=== PATIENT | female | born 1995 | race Caucasian/White ===

== ENCOUNTER 2016-06-07 19:09 | Inpatient (IN) | payer MEDICAID ==
[2016-04-04 17:09] VITALS: BMI 16.0
[2016-06-07] MEDS ORDERED: Aluminum;Magnesium;Simethicone 30 ML UDC PO PRN (19:55)
[2016-06-07 20:23] LABS: AUTOMATED EOSINOPHIL 0.6 % (0-5)
[2016-06-07 20:27] LABS: BLOOD UREA NITROGEN 10 MG/DL (7-17); CALC CORRECTED 9.7 MG/DL (8.4-10.2); CALCIUM 8.5 MG/DL (8.4-10.2); CALCULATED OSMOLALITY 261 MOs/Kg (270-290); CHLORIDE 107 mEq/L (98-107); GLUCOSE 91 MG/DL (70-99); SODIUM LEVEL 136 mEq/L (137-146); URIC ACID 4.4 MG/DL (2.5-6.2)
[2016-06-07 20:39] LABS: ALL NEG? NO
[2016-06-07 20:41] LABS: AUTOMATED BASOPHIL 0.6 % (0-2); AUTOMATED LYMPH 15.5 % (17-44); AUTOMATED MONOCYTE 6.6 % (3-10); AUTOMATED NEUTROPHIL 76.7 % (45-76); MPV 9.9 fL (7.4-10.4)
[2016-06-07 20:48] LABS: MDMA* NEG (NEGATIVE); METHAMPHETAMINES *POSITIVE* (NEGATIVE); OXYCODONE NEG (NEGATIVE)
[2016-06-07 20:51] LABS: LEUKOCYTES/URINE TRACE (NEGATIVE); NITRITE/URINE NEG (NEGATIVE); RBC/URINE TNTC (0-5); URINE OCCULT BLOOD 3+ (NEG/TRACE)
--- NOTE | 2016-06-07 21:30 | HISTPHYS ---
- HISTORY OF PRESENT ILLNESS Age: 20 Estimated Due Date: 08/10/16 Gestational Age: 28 : 1 Para: 0 Patient Presents to:: Labor & Delivery Presents for:: Vaginal Bleeding Details: Pt states she had light vaginal bleeding starting around 630 pm. Pt denies any recent intercourse Current : Other Complications (pt had pyelonephritis earlier in the ) - REVIEW OF SYSTEMS Reports/Denies: Reports: Vaginal Bleeding (but none since arrival to triage), Movement, Headache. Denies: Contractions, Leaking Fluid Pain: Reports: None - ALLERGIES Allergies Allergy/AdvReac Type Severity Reaction Status Date / Time Fish Containing Products Allergy Anaphylaxis Verified 06/07/16 19:26 * latex Allergy Rash-Locali Verified 06/07/16 19:26 zed milk Allergy Diarrhea Verified 06/07/16 19:26 nut - unspecified Allergy Anaphylaxis Verified 06/07/16 19:26 * - PAST SURGICAL HISTORY Reports: None - SOCIAL HISTORY Smoking Status: Former smoker - GENITOURINARY HISTORY Gynecologic History: Denies: Sexually Transmitted Infections HX : 1 Para: 0 Live Deliveries (# of pregnancies resulting in a live ): 0 - PHYSICAL EXAM Vital Signs:: Temperature: 98.3 F (06/07/16 19:27) HR: 74 (06/07/16 19:27) RR: 20 (06/07/16 19:27) BP: 163/115 (06/07/16 19:27) Pulse Ox: () Laboratory Results - last 24 hr 06/07/16 06/07/16 06/07/16 20:05 20:05 20:25 WBC 15.1 H RBC 3.64 L Hgb 10.8 L Hct 32.1 L MCV 88 MCH 29.7 MCHC 33.7 RDW 13.1 Plt Count 241 MPV 9.9 Neut % (Auto) 76.7 H Lymph % (Auto) 15.5 L [place] % (Auto) 6.6 Eos % (Auto) 0.6 Baso % (Auto) 0.6 Absolute Neuts (auto) 11.48 H Absolute Lymphs (auto) 2.27 Sodium 136 L Potassium 3.2 L Chloride 107 Carbon Dioxide 20 L Anion Gap 12 BUN 10 Creatinine 0.60 Estimated GFR (MDRD) > 60 Glucose 91 Calculated Osmolality 261 L Uric Acid 4.4 Calcium 8.5 Corrected Calcium 9.7 Total Bilirubin 0.3 AST 18 ALT 28 Alkaline Phosphatase 111 Total Protein 6.0 L Albumin 2.8 L Urine Color Yellow Urine Clarity Sl cldy Urine pH 6.0 Ur Specific [place] 1.005 Urine Protein 3+ H Urine Glucose (UA) Trace Urine Ketones Neg Urine Occult Blood 3+ H Urine Nitrite Neg Urine Bilirubin Neg Urine Urobilinogen <2.0 Ur Leukocyte Esterase Trace H Urine RBC Tntc H Ur Epithelial Cells 2+ Urine Bacteria Few Urine Mucus Mod H Urine Opiates Screen Ur Oxycodone Screen Urine Methadone Screen Ur Barbiturates Screen Ur Tricyclics Screen Ur Phencyclidine Scrn Ur Amphetamines Screen U Methamphetamines Scrn Urine MDMA Screen U Benzodiazepines Scrn Urine Cocaine Screen Ur THC Screen 06/07/16 20:25 WBC RBC Hgb Hct MCV MCH MCHC RDW Plt Count MPV Neut % (Auto) Lymph % (Auto) [place] % (Auto) Eos % (Auto) Baso % (Auto) Absolute Neuts (auto) Absolute Lymphs (auto) Sodium Potassium Chloride Carbon Dioxide Anion Gap BUN Creatinine Estimated GFR (MDRD) Glucose Calculated Osmolality Uric Acid Calcium Corrected Calcium Total Bilirubin AST ALT Alkaline Phosphatase Total Protein Albumin Urine Color Urine Clarity Urine pH Ur Specific [place] Urine Protein Urine Glucose (UA) Urine Ketones Urine Occult Blood Urine Nitrite Urine Bilirubin Urine Urobilinogen Ur Leukocyte Esterase Urine RBC Ur Epithelial Cells Urine Bacteria Urine Mucus Urine Opiates Screen *positive* H Ur Oxycodone Screen Neg Urine Methadone Screen Neg Ur Barbiturates Screen Neg Ur Tricyclics Screen *positive* H Ur Phencyclidine Scrn Neg Ur Amphetamines Screen Neg U Methamphetamines Scrn *positive* H Urine MDMA Screen Neg U Benzodiazepines Scrn Neg Urine Cocaine Screen Neg Ur THC Screen Neg GENERAL: Alert, Oriented, Anxious HEENT: Normal CARDOVASCULAR/CHEST: Normal RESPIRATORY: Normal - CTA ABDOMEN: Gravid, Non-Distended, Non-Tender, Soft (verified by MD) MUSCULOSKELETAL: Normal EXTERMITIES: Moves All Extremeties [place]S SIGN: negative: Bilateral Heart Rate: 140's Marked Variability Contractions: Absent Membranes: Intact - ASSESSMENT (ACTIVE PROBLEMS) (1) 30 weeks gestation of Acute Z3A.30 - 30 WEEKS GESTATION OF (2) Vaginal bleeding in Acute O46.90 - ANTEPARTUM HEMORRHAGE, UNSPECIFIED, UNSPECIFIED TRIMESTER (3) Drug abuse, opioid type Acute F11.10 - OPIOID ABUSE, UNCOMPLICATED (4) Drug abuse, amphetamine type Acute F15.10 - OTHER STIMULANT ABUSE, UNCOMPLICATED (5) Hypertension affecting , antepartum, third trimester Acute O16.3 - UNSPECIFIED MATERNAL HYPERTENSION, THIRD TRIMESTER - PLAN Admit (observation) Other Plan: pt kept for observation primarily due to persistent elevated BP. 3+ protein noted but urine sample did have blood noted as well as significant mucus. MD not sure of clinical relevance of the protein. If BP still elevated in the morning could start 24 hour urine , possibly as outpatient. [facility] labs were within normal limits, in light of positive drug screen, this may be the cause even though pt is adamant she has not used anything. However, the sample was run again by the lab and was still positive. Pt will receive IV hydralazine for BP control with probable D/C in AM when the effects of possible drugs have hopefully worn off.
[2016-06-07] MEDS ORDERED: Vaccine Screening Complete SCH (22:00)
[2016-06-07] MEDS: LR 1,000 ML IV SCH (22:07)
[2016-06-07] MEDS: ACETAMINOPHEN 325 MG/TAB TABLET PO PRN (22:07)
[2016-06-07] MEDS: hydrALAZINE 20 MG/ML VIAL IV PRN (22:07)
[2016-06-08] MEDS: LR 1,000 ML IV SCH (05:47)
[2016-06-08] MEDS: hydrALAZINE 20 MG/ML VIAL IV PRN ×2 (07:29→18:14)
[2016-06-08] MEDS: ACETAMINOPHEN 325 MG/TAB TABLET PO PRN (07:31)
[2016-06-08 08:37] LABS: LEUKOCYTES/URINE NEG (NEGATIVE); NITRITE/URINE NEG (NEGATIVE); URINE OCCULT BLOOD 1+ (NEG/TRACE)
[2016-06-08 08:49] LABS: BLOOD UREA NITROGEN 8 MG/DL (7-17); CALC CORRECTED 9.5 MG/DL (8.4-10.2); CALCIUM 8.3 MG/DL (8.4-10.2); CALCULATED OSMOLALITY 259 MOs/Kg (270-290); CHLORIDE 108 mEq/L (98-107); GLUCOSE 81 MG/DL (70-99); SODIUM LEVEL 136 mEq/L (137-146); TOTAL PROTEIN 6.3 G/DL (6.3-8.2); URIC ACID 4.4 MG/DL (2.5-6.2)
[2016-06-08 09:14] LABS: SEG NEUTROPHIL 80 % (45-76)
--- NOTE | 2016-06-08 10:39 | OBGYNPROG ---
- Subjective Hospital Day #: 2 Reports: Movement. Denies: Complaints, Vaginal Bleeding, Contractions, Heartburn/Indigestion, RUQ Pain, HEENT Complaints Pain: Reports: None - Objective Vital Signs: Temperature: 98.1 F (06/08/16 06:20) HR: 67 (06/08/16 06:20) RR: 18 (06/08/16 06:20) BP: 176/96 (06/08/16 06:20) Pulse Ox: () Laboratory Results - last 24 hr 06/07/16 06/07/16 06/07/16 20:05 20:05 20:25 WBC 15.1 H RBC 3.64 L Hgb 10.8 L Hct 32.1 L MCV 88 MCH 29.7 MCHC 33.7 RDW 13.1 Plt Count 241 MPV 9.9 Neut % (Auto) 76.7 H Lymph % (Auto) 15.5 L [place] % (Auto) 6.6 Eos % (Auto) 0.6 Baso % (Auto) 0.6 Absolute Neuts (auto) 11.48 H Absolute Lymphs (auto) 2.27 Seg Neuts % (Manual) Band Neutrophils % Lymphocytes % (Manual) Monocytes % (Manual) Absolute Neutrophils Absolute Lymphocytes Nucl RBC Rel Cnt (Man) Platelet Estimate RBC Morphology Sodium 136 L Potassium 3.2 L Chloride 107 Carbon Dioxide 20 L Anion Gap 12 BUN 10 Creatinine 0.60 Estimated GFR (MDRD) > 60 Glucose 91 Calculated Osmolality 261 L Uric Acid 4.4 Calcium 8.5 Corrected Calcium 9.7 Total Bilirubin 0.3 AST 18 ALT 28 Alkaline Phosphatase 111 Total Protein 6.0 L Albumin 2.8 L Urine Color Yellow Urine Clarity Sl cldy Urine pH 6.0 Ur Specific [place] 1.005 Urine Protein 3+ H Urine Glucose (UA) Trace Urine Ketones Neg Urine Occult Blood 3+ H Urine Nitrite Neg Urine Bilirubin Neg Urine Urobilinogen <2.0 Ur Leukocyte Esterase Trace H Urine RBC Tntc H Urine WBC Ur Epithelial Cells 2+ Urine Bacteria Few Urine Mucus Mod H Urine Opiates Screen Ur Oxycodone Screen Urine Methadone Screen Ur Barbiturates Screen Ur Tricyclics Screen Ur Phencyclidine Scrn Ur Amphetamines Screen U Methamphetamines Scrn Urine MDMA Screen U Benzodiazepines Scrn Urine Cocaine Screen Ur THC Screen 06/07/16 06/08/16 06/08/16 20:25 08:09 08:30 WBC RBC Hgb Hct MCV MCH MCHC RDW Plt Count MPV Neut % (Auto) Lymph % (Auto) [place] % (Auto) Eos % (Auto) Baso % (Auto) Absolute Neuts (auto) Absolute Lymphs (auto) Seg Neuts % (Manual) Band Neutrophils % Lymphocytes % (Manual) Monocytes % (Manual) Absolute Neutrophils Absolute Lymphocytes Nucl RBC Rel Cnt (Man) Platelet Estimate RBC Morphology Sodium 136 L Potassium 3.1 L Chloride 108 H Carbon Dioxide 21 L Anion Gap 10 BUN 8 Creatinine 0.60 Estimated GFR (MDRD) > 60 Glucose 81 Calculated Osmolality 259 L Uric Acid 4.4 Calcium 8.3 L Corrected Calcium 9.5 Total Bilirubin 0.4 AST 16 ALT 21 Alkaline Phosphatase 119 Total Protein 6.3 Albumin 2.8 L Urine Color Pale yell0w Urine Clarity Clear Urine pH 8.0 Ur Specific [place] 1.005 Urine Protein 2+ H Urine Glucose (UA) Neg Urine Ketones Neg Urine Occult Blood 1+ H Urine Nitrite Neg Urine Bilirubin Neg Urine Urobilinogen <2.0 Ur Leukocyte Esterase Neg Urine RBC 2-5 Urine WBC 2-5 Ur Epithelial Cells 2+ Urine Bacteria Few Urine Mucus Urine Opiates Screen *positive* H Ur Oxycodone Screen Neg Urine Methadone Screen Neg Ur Barbiturates Screen Neg Ur Tricyclics Screen *positive* H Ur Phencyclidine Scrn Neg Ur Amphetamines Screen Neg U Methamphetamines Scrn *positive* H Urine MDMA Screen Neg U Benzodiazepines Scrn Neg Urine Cocaine Screen Neg Ur THC Screen Neg 06/08/16 08:30 WBC 14.5 H RBC 3.98 L Hgb 11.4 L Hct 34.9 L MCV 88 MCH 28.7 MCHC 32.8 L RDW 12.9 Plt Count 273 MPV 9.0 Neut % (Auto) Cancelled Lymph % (Auto) Cancelled [place] % (Auto) Cancelled Eos % (Auto) Cancelled Baso % (Auto) Cancelled Absolute Neuts (auto) Cancelled Absolute Lymphs (auto) Cancelled Seg Neuts % (Manual) 80 H Band Neutrophils % 1 Lymphocytes % (Manual) 10 L Monocytes % (Manual) 9 Absolute Neutrophils 11.75 H Absolute Lymphocytes 1.45 Nucl RBC Rel Cnt (Man) 2 Platelet Estimate Large plts present RBC Morphology 1+ poik Sodium Potassium Chloride Carbon Dioxide Anion Gap BUN Creatinine Estimated GFR (MDRD) Glucose Calculated Osmolality Uric Acid Calcium Corrected Calcium Total Bilirubin AST ALT Alkaline Phosphatase Total Protein Albumin Urine Color Urine Clarity Urine pH Ur Specific [place] Urine Protein Urine Glucose (UA) Urine Ketones Urine Occult Blood Urine Nitrite Urine Bilirubin Urine Urobilinogen Ur Leukocyte Esterase Urine RBC Urine WBC Ur Epithelial Cells Urine Bacteria Urine Mucus Urine Opiates Screen Ur Oxycodone Screen Urine Methadone Screen Ur Barbiturates Screen Ur Tricyclics Screen Ur Phencyclidine Scrn Ur Amphetamines Screen U Methamphetamines Scrn Urine MDMA Screen U Benzodiazepines Scrn Urine Cocaine Screen Ur THC Screen GENERAL: Alert, Oriented, No Acute Distress HEENT: Normal CARDOVASCULAR/CHEST: Normal RESPIRATORY: Normal - CTA ABDOMEN: Non-Tender, Soft Fundal Height (cm): 30 EXTERMITIES: Moves All Extremeties. negative: Edema Membranes: Intact OBGYN Progress Note - ASSESSMENT (1) 31 weeks gestation of Status: Acute Code(s): Z3A.31 - 31 WEEKS GESTATION OF (2) Drug abuse, amphetamine type Status: Acute Code(s): F15.10 - OTHER STIMULANT ABUSE, UNCOMPLICATED (3) Drug abuse, opioid type Status: Acute Code(s): F11.10 - OPIOID ABUSE, UNCOMPLICATED (4) Hypertension affecting , antepartum, third trimester Status: Acute Code(s): O16.3 - UNSPECIFIED MATERNAL HYPERTENSION, THIRD TRIMESTER (5) Vaginal bleeding in Status: Acute Code(s): O46.90 - ANTEPARTUM HEMORRHAGE, UNSPECIFIED, UNSPECIFIED TRIMESTER - PLAN Continue Present Management 20 yo at 31 weeks with limited care with us, reports earlier care in [place] presented to [facility] last pm secondary to vaginal bleeding. No pain , found on exam to have positive UDS and hypertension. Patient denies ever using drugs. Labs for Pre-eclampsia have been normal, uric acid, lfts and plats. Pb has been labile, requiring iv hydralazine x 2. Patient denies headaches, no ruq pain. No edema, reflexes normal this am. NST reactive, no vaginal bleeding or contractions. Discussed with patient differential to include hypertension secondary to drug use, or gestational hypertension. Will follow closely, repeat labs in am and see if bp becomes normal. If symptoms change or suggest gestational hypertension, would discuss transfer. No current indication for delivery or transfer at this time.
[2016-06-08] MEDS ORDERED: SODIUM CHLORIDE 0.9% 3 ML FLUSH FLUSH PRN (10:52)
[2016-06-08] MEDS ORDERED: SODIUM CHLORIDE 0.9% 3 ML FLUSH FLUSH SCH (18:00)
[2016-06-08] MEDS: LABETALOL 100 MG TAB PO SCH (20:31)
[2016-06-09 06:35] LABS: AUTOMATED BASOPHIL 0.4 % (0-2); AUTOMATED EOSINOPHIL 0.3 % (0-5); AUTOMATED LYMPH 16.4 % (17-44); AUTOMATED NEUTROPHIL 75.9 % (45-76); MPV 9.6 fL (7.4-10.4)
[2016-06-09 06:58] LABS: BLOOD UREA NITROGEN 11 MG/DL (7-17); CALC CORRECTED 10.1 MG/DL (8.4-10.2); CALCIUM 8.5 MG/DL (8.4-10.2); CALCULATED OSMOLALITY 265 MOs/Kg (270-290); CHLORIDE 109 mEq/L (98-107); GLUCOSE 96 MG/DL (70-99); SODIUM LEVEL 138 mEq/L (137-146); TOTAL PROTEIN 5.2 G/DL (6.3-8.2); URIC ACID 4.5 MG/DL (2.5-6.2)
[2016-06-09] MEDS: LABETALOL 100 MG TAB PO SCH (08:28)
[2016-06-09 13:24] VITALS: TEMP 98.2
[2016-06-09] MEDS: hydrALAZINE 20 MG/ML VIAL IV PRN (13:30)
[2016-06-09] MEDS ORDERED: Magnesium Sulfate 4 gram/50 ml 4 GM/50 ML IVB IV ONE (14:03)
[2016-06-09] MEDS ORDERED: MAGNESIUM SULFATE IV ONE (14:03)
[2016-06-09] MEDS ORDERED: MAGNESIUM SULFATE 20 GM/500 ML IVB IV ONE (14:19)
[2016-06-09 14:40] VITALS: BP 158/83; PULSE 81
[2016-06-09] MEDS ORDERED: CALCIUM GLUCONATE 4.65 MEQ/10 ML VIAL IV SCH (15:00)
[2016-06-09] MEDS ORDERED: Betamethasone 6 mg/mL SUSP for INJ 5 ml MDV IM SCH (15:00)
[2016-06-09] MEDS ORDERED: MAGNESIUM SULFATE 20 GM/500 ML IVB IV SCH (15:00)
--- NOTE | 2016-06-09 15:29 | OBGYNPROG ---
- Subjective Hospital Day #: 4 Reports: Movement (Normal), Swelling (Mild hand edema). Denies: Complaints, Vaginal Bleeding, Contractions, Shortness of Breath, Headache, Blurred Vision, RUQ Pain Pain: Reports: None - Objective Vital Signs: Temperature: 98.2 F (06/09/16 13:23) HR: 81 (06/09/16 14:31) RR: 20 (06/09/16 14:31) BP: 158/83 (06/09/16 14:31) Pulse Ox: () GENERAL: Alert, Oriented, No Acute Distress, Anxious CARDOVASCULAR/CHEST: Normal. negative: Tachycardia, Irregular RESPIRATORY: Normal - CTA. negative: Rales, Rhonchi, Wheezes ABDOMEN: Gravid, Non-Distended, Non-Tender, Soft Fundal Height (cm): 31 MUSCULOSKELETAL: Normal. negative: Atrophy EXTERMITIES: Moves All Extremeties (DTRs 3+. No clonus). negative: Pain/ Tenderness Monitor Mode: External(US) Heart Rate: Reactive, Moderate Variability. negative: Decelerations Contraction Pattern: Absent Membranes: Intact Laboratory Last Values WBC 11.6 xk/uL (3.8-10.8) H 06/09/16 05:45 RBC 3.24 xM/uL (4.20-5.40) L 06/09/16 05:45 Hgb 9.8 g/dL (12.0-16.0) L D 06/09/16 05:45 Hct 28.9 % (36-47) L 06/09/16 05:45 MCV 89 fL (81-99) 06/09/16 05:45 MCH 30.3 pg (27-32) 06/09/16 05:45 MCHC 34.0 g/dl (33-36) 06/09/16 05:45 RDW 13.2 % (11.5-14.5) 06/09/16 05:45 Plt Count 233 xk/uL (130-400) 06/09/16 05:45 MPV 9.6 fL (7.4-10.4) 06/09/16 05:45 Neut % (Auto) 75.9 % (45-76) 06/09/16 05:45 Lymph % (Auto) 16.4 % (17-44) L 06/09/16 05:45 [place] % (Auto) 7.0 % (3-10) 06/09/16 05:45 Eos % (Auto) 0.3 % (0-5) 06/09/16 05:45 Baso % (Auto) 0.4 % (0-2) 06/09/16 05:45 Absolute Neuts (auto) 8.70 xk/uL (1.7-8.2) H 06/09/16 05:45 Absolute Lymphs (auto) 1.86 xk/uL (0.65-4.75) 06/09/16 05:45 Seg Neuts % (Manual) 80 % (45-76) H 06/08/16 08:30 Band Neutrophils % 1 % (0-5) 06/08/16 08:30 Lymphocytes % (Manual) 10 % (17-44) L 06/08/16 08:30 Monocytes % (Manual) 9 % (0-10) 06/08/16 08:30 Absolute Neutrophils 11.75 xk/uL (1.7-8.2) H 06/08/16 08:30 Absolute Lymphocytes 1.45 xk/uL (0.65-4.75) 06/08/16 08:30 Nucl RBC Rel Cnt (Man) 2 /100 WBC 06/08/16 08:30 Platelet Estimate Norm (NORMAL) Large plts present (NORMAL) 06/08/16 08: 30 Platelet Estimate Norm (NORMAL) Large plts present (NORMAL) 06/08/16 08: 30 RBC Morphology 1+ poik 06/08/16 08:30 Sodium 138 mEq/L (137-146) 06/09/16 05:45 Potassium 3.3 mEq/L (3.5-5.1) L 06/09/16 05:45 Chloride 109 mEq/L (98-107) H 06/09/16 05:45 Carbon Dioxide 23 mMOL/L (22-33) 06/09/16 05:45 Anion Gap 9 mEq/L (8-16) 06/09/16 05:45 BUN 11 MG/DL (7-17) 06/09/16 05:45 Creatinine 0.60 MG/DL (0.52-1.04) 06/09/16 05:45 Estimated GFR (MDRD) > 60 mL/min (>=60) 06/09/16 05:45 Glucose 96 MG/DL (70-99) 06/09/16 05:45 Calculated Osmolality 265 MOs/Kg (270-290) L 06/09/16 05:45 Uric Acid 4.5 MG/DL (2.5-6.2) 06/09/16 05:45 Calcium 8.5 MG/DL (8.4-10.2) 06/09/16 05:45 Corrected Calcium 10.1 MG/DL (8.4-10.2) 06/09/16 05:45 Total Bilirubin 0.2 MG/DL (0.2-1.3) 06/09/16 05:45 AST 13 IU/L (14-36) L 06/09/16 05:45 ALT 23 IU/L (9-52) 06/09/16 05:45 Alkaline Phosphatase 98 IU/L (38-126) 06/09/16 05:45 Total Protein 5.2 G/DL (6.3-8.2) L 06/09/16 05:45 Albumin 2.4 G/DL (3.5-5.0) L 06/09/16 05:45 Urine Color Pale yell0w 06/08/16 08:09 Urine Clarity Clear 06/08/16 08:09 Urine pH 8.0 (5.0-8.0) 06/08/16 08:09 Ur Specific [place] 1.005 (1.003-1.035) 06/08/16 08:09 Urine Protein 2+ (NEG/TRACE) H 06/08/16 08:09 Urine Glucose (UA) Neg (NEGATIVE) 06/08/16 08:09 Urine Ketones Neg (NEGATIVE) 06/08/16 08:09 Urine Occult Blood 1+ (NEG/TRACE) H 06/08/16 08:09 Urine Nitrite Neg (NEGATIVE) 06/08/16 08:09 Urine Bilirubin Neg (NEGATIVE) 06/08/16 08:09 Urine Urobilinogen <2.0 MG/DL (0-1) 06/08/16 08:09 Ur Leukocyte Esterase Neg (NEGATIVE) 06/08/16 08:09 Urine RBC 2-5 (0-5) 06/08/16 08:09 Urine WBC 2-5 (0-5) 06/08/16 08:09 Ur Epithelial Cells 2+ 06/08/16 08:09 Urine Bacteria Few (NEG/FEW) 06/08/16 08:09 Urine Mucus Mod (NEG/OCC) H 06/07/16 20:25 Urine Opiates Screen *positive* (NEGATIVE) H 06/07/16 20:25 Ur Oxycodone Screen Neg (NEGATIVE) 06/07/16 20:25 Urine Methadone Screen Neg (NEGATIVE) 06/07/16 20:25 Ur Barbiturates Screen Neg (NEGATIVE) 06/07/16 20:25 Ur Tricyclics Screen *positive* (NEGATIVE) H 06/07/16 20:25 Ur Phencyclidine Scrn Neg (NEGATIVE) 06/07/16 20:25 Ur Amphetamines Screen Neg (NEGATIVE) 06/07/16 20:25 U Methamphetamines Scrn *positive* (NEGATIVE) H 06/07/16 20:25 Urine MDMA Screen Neg (NEGATIVE) 06/07/16 20:25 U Benzodiazepines Scrn Neg (NEGATIVE) 06/07/16 20:25 Urine Cocaine Screen Neg (NEGATIVE) 06/07/16 20:25 Ur THC Screen Neg (NEGATIVE) 06/07/16 20:25 OBGYN Progress Note - ASSESSMENT (1) Severe pre-eclampsia Status: Acute Comment: POC discussed with patient. I have recommended transfer for further management and possible delivery. She agree with plan (2) Hypertension affecting , antepartum, third trimester Status: Acute Code(s): O16.3 - UNSPECIFIED MATERNAL HYPERTENSION, THIRD TRIMESTER - PLAN Continue Present Management (Transfer to [facility])
--- NOTE | 2016-06-09 15:53 | PCM.DCS92 ---
- Primary/Secondary Discharge Diagnoses (1) Severe pre-eclampsia Acute Present on Admission: Yes (2) Hypertension affecting , antepartum, third trimester Acute O16.3 - UNSPECIFIED MATERNAL HYPERTENSION, THIRD TRIMESTER Present on Admission: Yes - HOSPITAL COURSE /Op Complications: None - DISCHARGE INSTRUCTIONS Discharge Disposition: Trans. to Other Hospital ([facility]) Discharge Condition: Stable Cognitive Discharge Status: Unimpaired Fuctional Discharge Status: Independent Patient Leaving with Prescriptions?: None - DC Summary Notes Discharge Medications: *See "Discharge Medication List" for a complete list of Home Medications and Discharge Medications.* Obstetric Hospital Course - Admitting Diagnosis Reason for Visit: Vaginal Bleeding Admission Date: 06/07/16 Admission time: 19:28 Gestational Age: 31
== END 2016-06-09 16:19 | disposition short-term general hospital (02) | DRG 781 ==
LOC: LD 19:09 → OBSVTOIN 06-08 10:47 → MASU 06-08 10:47
PROVIDERS: ADMIT Obstetrics & Gynecology; ATTEND Obstetrics & Gynecology
DX: O14.13 Severe pre-eclampsia, third trimester (principal); O99.323 Drug use complicating pregnancy, third trimester; Z3A.30 30 weeks gestation of pregnancy; O16.3 Unspecified maternal hypertension, third trimester; F11.10 Opioid abuse, uncomplicated; F15.10 Other stimulant abuse, uncomplicated
CPT/HCPCS: 80053; 80307; 81001; 81002; 84156; 84550; 85007; 85025; 85027; 96361; 96365; 96366; 96372; 96374; 96375; 96376; J0360; J0702; J3475; J3490